=== PATIENT | male | born 1960 | race Caucasian/White ===

== ENCOUNTER 2016-12-20 16:49 | Emergency (ER) | payer MEDICARE, BC, OTHER ==
[~2016-12-20] VITALS: Ht 180.3 cm; Wt 95.5 kg
[~2016-12-20 16:49] MED LIST: ALEV220T14 PO; ALPR2TAB3 PO; CETI10 PO; HYDR12.56 PO; LISI-360 PO; MORP20SO PO; RANI300T PO; VENL100T PO
[2016-12-20 16:55] VITALS: BP_SYST 115; BP_SYST 130; BP_DIAS 80; BP_DIAS 93; PULSE 103; RESP 16; TEMP 98.2; O2SAT 96
[2016-12-20] MEDS ORDERED: ZANT150T2 PO (17:18)
[2016-12-20] MEDS ORDERED: LISI10TA3 PO (17:18)
[2016-12-20] MEDS ORDERED: HYDR12.57 PO (17:18)
[2016-12-20] MEDS ORDERED: ALPR2TAB3 PO (17:18)
[2016-12-20] MEDS ORDERED: EFFE150C PO (17:18)
[2016-12-20] MEDS ORDERED: DILAUDID PUMP IMPLANT (17:22)
--- NOTE | 2016-12-20 18:21 | RADRPT ---
EXAM DATE/TIME: 12/20/2016 17:48 [place] COMPARISON: RIBS BILAT(W PA CXR [id number]), January 31, 2016, 15:12. INDICATIONS : Left side rib pain; fall 2 days ago. MEDICAL HISTORY : None. SURGICAL HISTORY : None. ENCOUNTER: Initial ACUITY: 2 days PAIN SCORE: 10/10 LOCATION: Left ribs FINDINGS: Multiple views of the left ribs were performed. There is no evidence of displaced fracture. No dest ructive lesions or areas of periosteal thickening are seen. Expiratory view of the chest is negative for pneumothorax. The mediastinal structures are midline. There is mild elevation of the right hem idiaphragm. CONCLUSION: No visualized rib fracture or pneumothorax. Mu Chase MD on December 20, 2016 at 18:18 Board Certified Radiologist. This report was verified electronically.
[2016-12-20] MEDS ORDERED: ROBA750T PO (18:38)
--- NOTE | 2016-12-20 18:38 | PD ---
HPI Chief Complaint: Chest Pain Time Seen by Provider: 17:28 Travel History International Travel<30 days: No Contact w/Intl Traveler<30days: No Traveled to known affect area: No History of Present Illness HPI 56 years old male complains of Chest wall pain. Patient states that he fell 2 days ago. Patient stated he landed on the left chest. Patient states that he also hit the face. Patient denies loss of consciousness. Patient denies any headache or neck pain. Patient denies any visual change. Patient complains of sharp stabbing pain localized to left anterior chest wall area. Patient denies any pain radiation. Patient states the pain is worse with deep breathing. On a scale of 1-10 the pain is a 10. Patient has history of chronic pain and on Dilaudid pump. 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)) Diminished Hearing: No Gastrointestinal Disorders: Yes (GERD) GERD: Yes Herniated Disk: Yes (L4, L5 ) Hypertension: Yes Medical other: Yes (edema bilat lower legs/feet) Respiratory: Yes (copd) Tetanus Vaccination: Unknown Influenza Vaccination: No Past Surgical History Abdominal Surgery: Yes (colonoscopy and endoscopy) Body Medical Devices: internal pain pump Other Surgery: Yes (pain pump insertion 10/2015) Social History Alcohol Use: Yes (occas.) Tobacco Use: No Substance Use: No Allergies-Medications (Allergen,Severity, Reaction): Coded Allergies: No Known Allergies (Unverified , 12/20/16) Reported Meds & Prescriptions Reported Meds & Active Scripts Active Reported [dilaudid pump] Unknown Strength Unknown Dose IMPLANT DIRECTED Zantac (Ranitidine HCl) 150 Mg Tab 150 Mg PO BID PRN Alprazolam 2 Mg Tab 2 Mg PO Q8H PRN Effexor XR 24 HR (Venlafaxine HCl) 150 Mg Cap 225 Mg PO DAILY Hydrochlorothiazide 12.5 Mg Cap 12.5 Mg PO DAILY Lisinopril 10 Mg Tab 10 Mg PO DAILY Review of Systems General / Constitutional: No: Fever Eyes: No: Visual changes HENT: No: Headaches Cardiovascular: Positive: Chest Pain or Discomfort Respiratory: No: Shortness of Breath Gastrointestinal: No: Abdominal Pain Genitourinary: No: Dysuria Musculoskeletal: No: Pain Skin: No Rash Neurologic: No: Weakness Psychiatric: No: Depression Endocrine: No: Polydipsia Hematologic/Lymphatic: No: Easy Bruising Physical Exam Narrative GENERAL: Well-nourished, well-developed patient. SKIN: Focused skin assessment warm/dry. HEAD: Normocephalic. EYES: No scleral icterus. No injection or drainage. NECK: Supple, trachea midline. No JVD or lymphadenopathy. CARDIOVASCULAR: Regular rate and rhythm without murmurs, gallops, or rubs. RESPIRATORY: Breath sounds equal bilaterally. No accessory muscle use. GASTROINTESTINAL: Abdomen soft, non-tender, nondistended. MUSCULOSKELETAL: No cyanosis, or edema. BACK: Nontender without obvious deformity. No CVA tenderness. Patient has moderate tenderness on palpation left lower rib cage area midclavicular line. No crepitus no deformity noted. Breath sounds equal bilaterally. Data Data Last Documented VS Vital Signs Date Time Temp Pulse Resp B/P (MAP) Pulse Ox O2 Delivery O2 Flow Rate FiO2 12/20/16 17:28 102 16 98 Room Air 12/20/16 16:55 98.2 130/93 (105) 115/80 (92) Orders Orders Ribs, Uni (W/Exp Cxr-Min 3vw) (12/20/16 17:36) [facility] Medical Decision Making Medical Screen Exam Complete: Yes Emergency Medical Condition: Yes Differential Diagnosis Differential diagnosis including chest wall contusion, rib fracture, hemopneumothorax. Narrative Course 56 years old male with left anterior chest wall pain, status post fall. Lortab 5/325, one tablet by mouth given. Diagnosis Primary Impression: Chest wall contusion Qualified Codes: S20.212A - Contusion of left front wall of thorax, initial encounter Patient Instructions: General Instructions Additional Instructions: Robaxin as needed for pain. Continue with all medication for pain. Follow-up with personal physician. Return if worse. Med/Other Pt SpecificInfo: Prescription(s) given Scripts Methocarbamol (Robaxin) 750 Mg Tab 750 MG PO QID for Muscle Spasm, #40 TAB 0 Refills Prov: Ari Canela MD 12/20/16 Disposition: 01 DISCHARGE HOME Condition: Stable Ari Canela MD Dec 20, 2016 18:38
[2016-12-20] MEDS ORDERED: ACETAMINOPHEN/HYDROcodone 325 MG/5 MG TAB PO ONE (18:45)
[2016-12-20 19:15] VITALS: BP 130/87; PULSE 102; RESP 18; O2SAT 95
--- NOTE | 2016-12-22 01:08 | EKG ---
Date Performed: 12/20/2016 Time Performed: 16:55:21 PTAGE: 56 years EKG: SINUS TACHYCARDIA NON-SPECIFIC ST/T WAVE CHANGES ABNORMAL RHYTHM ECG NO PREVIOUS TRACING DOCTOR: Bladimir Lara Interpretating Date/Time 12/22/2016 01:07:23
== END 2016-12-20 19:15 | disposition home or self-care (01) ==
LOC: PHED 16:49
DX: S20.212A Contusion of left front wall of thorax, initial encounter (principal); I10 Essential (primary) hypertension; J44.9 Chronic obstructive pulmonary disease, unspecified; K21.9 Gastro-esophageal reflux disease without esophagitis; W01.0XXA Fall on same level from slipping, tripping and stumbling without subsequent striking against object, initial encounter; Z79.82 Long term (current) use of aspirin
CPT/HCPCS: 71101; 93005; 99283